=== PATIENT | female | born 1955 | race Caucasian/White ===

== ENCOUNTER 2022-11-28 14:22 | Emergency (ER) | payer BC, MEDICARE ==
[~2022-11-28 14:22] MED LIST: HYDR-4383 PO; IBUP-1985 PO
--- NOTE | 2022-11-28 15:26 | NUR ---
NOT IN LOBBY.
--- NOTE | 2022-11-28 16:08 | NUR ---
NOT IN LOBBY.
--- NOTE | 2022-11-28 16:28 | NUR ---
NOT IN LOBBY.
== END 2022-11-28 20:53 | disposition left against medical advice (07) ==
LOC: ER 16:56
DX: Z00.00 Encounter for general adult medical examination without abnormal findings (principal); Z53.21 Procedure and treatment not carried out due to patient leaving prior to being seen by health care provider